=== PATIENT | male | born 1965 | race Caucasian/White ===

== ENCOUNTER 2019-10-16 16:48 | Emergency (ER) | payer OTHER ==
[~2019-10-16] VITALS: Ht 165.1 cm; Wt 79.4 kg
[2019-10-16] MEDS ORDERED: ZESTRIL5 MG (16:56)
[2019-10-16] MEDS ORDERED: SIMVASTATIN5 MG (16:56)
[2019-10-16] MEDS ORDERED: METFORMIN HCL500 MG (16:56)
== END 2019-10-16 17:36 | disposition home or self-care (01) ==
LOC: ER 16:48
DX: L03.114 Cellulitis of left upper limb (principal); L03.113 Cellulitis of right upper limb